=== PATIENT | female | born 1985 | race Caucasian/White ===

== ENCOUNTER 2019-07-11 15:01 | Emergency (ER) | payer OTHER ==
--- NOTE | 2019-07-11 15:46 | RAD ---
RIGHT ANKLE 3 VIEWS: HISTORY: Ankle injury. FINDINGS: There are no signs of fracture, dislocation, or joint effusion. IMPRESSION: No acute injury. POS: [facility]
--- NOTE | 2019-07-11 15:47 | RAD ---
RIGHT FOOT THREE VIEWS: 07/11/19 HISTORY: Foot pain status post trauma. Mildly prominent calcaneal spurs are present. There are no signs of fracture or dislocation. IMPRESSION: No evidence of fracture. POS: [facility]
== END 2019-07-11 16:36 | disposition home or self-care (01) ==
LOC: SCSER 15:01
DX: S93.401A Sprain of unspecified ligament of right ankle, initial encounter (principal); S93.601A Unspecified sprain of right foot, initial encounter; G43.909 Migraine, unspecified, not intractable, without status migrainosus; J45.909 Unspecified asthma, uncomplicated; F31.9 Bipolar disorder, unspecified; X50.1XXA Overexertion from prolonged static or awkward postures, initial encounter

== ENCOUNTER 2020-09-14 18:29 | Emergency (ER) | payer OTHER ==
[2020-09-14 19:00] LABS: Bilirubin Negative (Negative); Blood, Urine Negative (Negative); Clarity Clear (Clear); Glucose, Urine (Dipstick) Normal (Negative); Ketone, Urine Negative (Negative); Leukocyte Negative Leu/uL (Negative); Nitrite Negative (Negative); Protein, Urine (Dipstick) Negative (Neg-Trace); Specific Gravity, Urine 1.014 (1.002-1.036); Urobilinogen Normal mg/dL (Less than 2); pH, Urine 6.5 (5.0-9.0)
[2020-09-14] MEDS ORDERED: Ketorolac Tromethamine 30 MG/ML VIAL ONE (19:11)
[2020-09-14] MEDS ORDERED: Ondansetron PF 4 MG/2 ML Vial ONE (19:11)
[2020-09-14] MEDS ORDERED: Morphine 4 MG/ML VIAL ONE ×2 (19:11→22:35)
[2020-09-14 19:15] LABS: Pregnancy Test - Urine (BHCG) Negative (Negative); Pregu Control Background? CLEAR/WHITE (CLR/WHITE); Pregu Control Bar Appear? YES (CONTROL BAR); Specific Gravity 1.014 (1.002-1.036)
[2020-09-14 19:22] LABS: #Basophils 0.1 thou/uL (0.0-0.2); #Eosinphils 0.3 thou/uL (0.0-0.7); #Monocytes 0.7 thou/uL (0.11-0.59); #Neutrophils 6.6 thou/uL (1.40-6.50); %Eosinophils 2.8 % (0.0-10.0); %Lymphocytes 27.9 % (21.0-51.0); %Monocytes 6.4 % (0.0-10.0); %Neutrophils 61.9 % (42.0-75.0); Hemoglobin 16.2 g/dL (12.0-16.0); Mean Corpuscular HGB CONC 34.1 g/dL (32.0-36.0); Mean Corpuscular Volume 88.1 fL (78.0-98.0); Mean Platelet Volume 8.1 fL (7.4-10.4); Platelet Count 367 thou/uL (130-400); Red Blood Cell (RBC) Count 5.38 mill/uL (4.20-5.40); White Blood Cell (WBC) Count 10.6 thou/uL (4.8-10.8)
--- NOTE | 2020-09-14 19:51 | CT ---
CT OF THE ABDOMEN AND PELVIS WITHOUT IV CONTRAST: 09/14/20 INDICATION: Concern for renal calculi. COMPARISON: None. FINDINGS: The lung bases are clear. The unopacified liver, gallbladder, pancreas, adrenal glands, and spleen appear within normal limits. No free fluid or enlarged lymph nodes evident. No renal or ureteral calculus is evident. No hydronephrosis. There is shotty appearing lymph nodes seen within the central aspect of the mesentery with mild mesen teric stranding. There is a normal appendix in the right lower quadrant. There is a mild amount of retained stool with in the colon. Small bowel is of normal caliber. No drainable fluid collection is evident. There is a 4 cm hyperdense lesion within the right aspect of the pelvis possibly related to the right adnexa. Left adnexa is not definitely seen. The uterus is not seen. Bladder is unremarkable appearin g. Rectum and perirectal soft tissues are unremarkable appearing. No definite acute osseous abnormality is evident. IMPRESSION: 1. 4 cm hypodense lesion within the right hemipelvis. This may reflect a bladder diverticulum or possibly an adnexal cyst if the patient still has her right adnexa. Left adnexa is not definitely se en. The uterus is not definitely seen. Recommend correlation with patient's clinical history. Pelvic ultrasound may be helpful for improved characterization. 2. No renal or ureteral calculus. 3. Mild amount of retained stool within the colon. 4. Mild stranding within the central mesentery with shotty appearing lymph nodes nonspecific. Th is can be seen with entity such as acute pancreatitis, sclerosing mesenteritis or lymphoma. POS: [facility]
[2020-09-14 19:57] LABS: ALT (SGPT) 53 U/L (8-55); AST (SGOT) 36 U/L (5-34); Albumin 4.3 g/dL (3.5-5.0); Alkaline Phosphatase 112 U/L (40-110); Anion Gap 15 mmol/L (10-20); BUN (Urea Nitrogen) 10 mg/dL (7.0-18.7); Bilirubin, Total 0.3 mg/dL (0.2-1.2); Calc. Creatinine Clearance 0 mL/min (70-130); Calcium 9.7 mg/dL (7.8-10.44); Carbon Dioxide 23 mmol/L (22-29); Chloride 104 mmol/L (98-107); Globulin 3.9 g/dL (2.4-3.5); Glucose 85 mg/dL (70-105); Potassium 4.1 mmol/L (3.5-5.1); Protein, Total 8.2 g/dL (6.0-8.3); Sodium 138 mmol/L (136-145)
--- NOTE | 2020-09-14 21:07 | ULT ---
Exam: Transabdominal and endovaginal pelvic ultrasound HISTORY:[facility]. COMPARISON:02/24/2007 Correlation: Abdomen and pelvic CT 09/14/2020 TECHNIQUE: Transabdominal and endovaginal imaging of the pelvis is performed. Ovaries are interrogate d with grayscale, color flow, Doppler imaging and spectral wave form analysis FINDINGS: Uterus: Surgically absent Free fluid: None Right ovary: Anechoic focus in the right adnexa is presumed to be of ovarian origin. Overall right ov bakari measures 3.9 x 3.9 x 3.3 cm. Anechoic focus occupies the majority of the ovarian parenchyma. Left ovary: Not appreciated. No obvious masses or fluid in the left adnexa. Ovarian Doppler: There is vascular flow to the right ovary. IMPRESSION: 1. Large anechoic focus occupying the right adnexa which is presumed to be of ovarian origin. Follow- up ultrasound in 6-8 weeks to ensure resolution. 2. There is vascular flow to the right ovary.
== END 2020-09-14 22:42 | disposition home or self-care (01) ==
LOC: ERS 18:29
DX: N83.209 Unspecified ovarian cyst, unspecified side (principal); R59.0 Localized enlarged lymph nodes; J45.909 Unspecified asthma, uncomplicated; G43.909 Migraine, unspecified, not intractable, without status migrainosus
CPT/HCPCS: 74176; 76856; 80053; 81003; 81025; 85025; 94760; 96374; 96375; 96376; J1885; J2270; J2405

== ENCOUNTER 2020-11-23 17:40 | Emergency (ER) | payer OTHER ==
--- NOTE | 2020-11-23 19:01 | RAD ---
XR Knee Rt 4 View STANDARD: 11/23/2020 6:42 PM CLINICAL INDICATION: 35-year-old female with history of fall in the right knee COMPARISON: None. FINDINGS: Bones: Small bone island is seen within the medial aspect of the distal right femur Joints: No joint capsular distention.. Soft Tissue: No acute abnormality.. IMPRESSION: No acute fracture or subluxation demonstrated..
[2020-11-23] MEDS ORDERED: Acetaminophen/Codeine 30-300mg Tablet ONE (19:51)
[2020-11-23] MEDS ORDERED: Ketorolac Tromethamine 30 MG/ML VIAL ONE (19:51)
== END 2020-11-23 19:56 | disposition home or self-care (01) ==
LOC: ERS 17:40
DX: S83.91XA Sprain of unspecified site of right knee, initial encounter (principal); M25.461 Effusion, right knee; J45.909 Unspecified asthma, uncomplicated; Z87.891 Personal history of nicotine dependence; Z79.899 Other long term (current) drug therapy; W18.30XA Fall on same level, unspecified, initial encounter
CPT/HCPCS: 96372; J1885

== ENCOUNTER 2021-05-09 13:12 | Emergency (ER) | payer OTHER ==
[~2021-05-09 13:12] MED LIST: Iopamidol-370 76% 500 ML 1 ML ONE
[2021-05-09 14:32] LABS: #Basophils 0.1 thou/uL (0.0-0.2); #Eosinphils 0.4 thou/uL (0.0-0.7); #Lymphocytes 3.3 thou/uL (1.20-3.40); #Monocytes 0.9 thou/uL (0.11-0.59); #Neutrophils 9.2 thou/uL (1.40-6.50); %Basophils 0.9 % (0.0-1.0); %Eosinophils 3.1 % (0.0-10.0); %Lymphocytes 23.4 % (21.0-51.0); %Monocytes 6.7 % (0.0-10.0); Hemoglobin 16.9 g/dL (12.0-16.0); Mean Corpuscular HGB CONC 34.3 g/dL (32.0-36.0); Mean Corpuscular Hemoglobin 30.1 pg (27.0-31.0); Mean Platelet Volume 7.7 fL (7.4-10.4); Platelet Count 428 thou/uL (130-400); RBC Distribution Width 12.1 % (11.5-14.5); Red Blood Cell (RBC) Count 5.62 mill/uL (4.20-5.40); White Blood Cell (WBC) Count 13.9 thou/uL (4.8-10.8)
[2021-05-09 15:01] LABS: ALT (SGPT) 139 U/L (8-55); AST (SGOT) 37 U/L (5-34); Albumin 3.9 g/dL (3.5-5.0); Alkaline Phosphatase 99 U/L (40-110); Anion Gap 14 mmol/L (10-20); BUN (Urea Nitrogen) 10 mg/dL (7.0-18.7); Bilirubin, Total 0.7 mg/dL (0.2-1.2); Calc. Creatinine Clearance 0 mL/min (70-130); Carbon Dioxide 19 mmol/L (22-29); Chloride 108 mmol/L (98-107); Globulin 3.6 g/dL (2.4-3.5); Glucose 96 mg/dL (70-105); Potassium 3.9 mmol/L (3.5-5.1); Protein, Total 7.5 g/dL (6.0-8.3); Sodium 137 mmol/L (136-145)
[2021-05-09] MEDS ORDERED: Albuterol 200 PUFF (6.7GM INHALER) ONE (16:05)
[2021-05-09] MEDS ORDERED: Dexamethasone 10 MG/ML VIAL ONE (16:06)
[2021-05-09 16:39] LABS: BHCG - Serum Negative (NEGATIVE); Pregs Control Background? CLEAR/WHITE (CLR/WHITE); Pregs Control Bar Appear? YES (CONTROL BAR)
== END 2021-05-09 18:13 | disposition home or self-care (01) ==
LOC: ERS 13:12
DX: U07.1 COVID-19 (principal); J12.82 Pneumonia due to coronavirus disease 2019; R94.5 Abnormal results of liver function studies; I77.819 Aortic ectasia, unspecified site
CPT/HCPCS: 36415; 71045; 71275; 80053; 84484; 84703; 85025; 85379; 93005; 96374; J1100; Q9967

== ENCOUNTER 2021-07-01 05:59 | Day surgery (SDC) | payer OTHER ==
[2021-06-30 09:59] VITALS: BMI 39.4
[2021-07-01] MEDS ORDERED: Ondansetron PF 4 MG/2 ML Vial ONE (07:16)
[2021-07-01] MEDS ORDERED: PROPOFOL 40 ML ONE (07:53)
== END 2021-07-01 10:04 | disposition home or self-care (01) ==
LOC: SDC 05:59
PROVIDERS: ATTEND Internal Medicine Cardiovascular Disease
PROC: B24BZZ4 Ultrasonography of Heart with Aorta, Transesophageal (ICD-10-PCS; principal; 2021-07-01)
DX: I35.1 Nonrheumatic aortic (valve) insufficiency (principal); I34.0 Nonrheumatic mitral (valve) insufficiency; I51.7 Cardiomegaly; I70.0 Atherosclerosis of aorta; I51.3 Intracardiac thrombosis, not elsewhere classified; Z88.0 Allergy status to penicillin; E03.9 Hypothyroidism, unspecified; J45.909 Unspecified asthma, uncomplicated; Z86.16 Personal history of COVID-19; Z79.82 Long term (current) use of aspirin; Z79.899 Other long term (current) drug therapy; Z88.8 Allergy status to other drugs, medicaments and biological substances; Z91.018 Allergy to other foods; Z91.040 Latex allergy status; Z87.891 Personal history of nicotine dependence
CPT/HCPCS: 80048; 85025; 93005; 93010; 93312; J2405; J2704; U0003; U0005